=== PATIENT | male | born 2000 | race Caucasian/White ===

== ENCOUNTER 2018-02-05 09:39 | Emergency (ER) | payer SELFPAY ==
[2018-02-05 09:54] VITALS: BP 146/96; PULSE 79; RESP 20; TEMP 36.8; O2SAT 98; BMI 34.2
--- NOTE | 2018-02-05 10:12 | HMH.EDUTC ---
[facility] [place] Clinical Impression: Viral upper respiratory illness Disposition: Home, Self-Care Condition on Discharge: Good Instructions: DI for Viral Upper Respiratory Infection -- Adult Additional Instructions: * No sign of bacterial infection. Likely viral. Virus can take 7-14 days to run their course * Nasal Saline to remove nasal drainage and help with nasal congestion. Hard to eat, drink, sleep with nasal congestion so important to keep nose cleaned out * Monitor Temp. If fever develops, follow up. * Encourage fluids, water, gatorade, powerade, pedialyte if infant/toddler/child * warm salt water gargles * warm fluids * sore throat lozenges * sleep elevated * humidifier/vaporizer * Ok to continue dayquil during the day and nyquil at night. Do not take multiple different ones as they have similar ingredients and you can overdose on cold medication. * * Your throat swab was sent for culture. Those results are typically sent to your primary care. Be sure to follow up in 2-3 days if no improvement so they can review those results and treat if necessary. If you don't have primary care, I recommend you get one but in the mean time, you will have to return to a walk in clinic. Referrals: Sandeep Chang MD [Primary Care Provider] - (Follow up IMMEDIATELY for new or worsening symptoms, improvement followed by suddenly feeling worse OR no noticeable improvement over the next 48-72 hours. 911 for difficulty breathing ) Forms: Work/School Release Time of Disposition: 10:18 Medical Decision Making Vital Signs: 02/05/18 09:54 Temperature 98.2 F Temperature Source Oral Pulse Rate [Right Brachial] 79 Respiratory Rate 20 Blood Pressure [Right Arm] 146/96 Blood Pressure Mean [Right Arm] 112 Blood Pressure Source [Right Arm] Automatic Cuff Blood Pressure Position [Right Arm] Sitting 02 Sat by Pulse Oximetry 98 Oxygen Delivery Method Room Air - Lab Data Lab results reviewed: Yes: I reviewed the patient's lab results. Flu A neg Flu B neg Strep neg - Gary Inquiry Pt receiving controlled substance: No [facility] [place] HPI - General Stated complaint: cold Time Seen by Provider: 02/05/18 10:12 Mode of Arrival: Family Vehicle Source of Information: Patient Limitations: No Limitations Description of Symptoms (Recalled from Triage Doc. by RN): cough,sore throat and chills since saturday HEENT Symptoms (Recalled from RN notes): Yes (sore throat) Resp Symptoms (Recalled from RN notes): Yes (cough) Skin Symptoms (Recalled from RN notes): No MS Symptoms (Recalled from RN notes): No Functional Status (Recalled from RN notes): n/a - History of Present Illness Provider Complaint: c/o I don't feel well . Started with rhinorrhea and nasal congestion Saturday, 4 days ago. Has progressed to include sore throat and cough. No known fevers, aches. Intermittent chills. Dayquil and Nyquil help briefly . No known sick contacts. - Related Data Home Medications Medication Instructions Recorded Confirmed No Known Home Medications [No 02/03/18 02/03/18 Known Home Medications] Allergies Allergy/AdvReac Type Severity Reaction Status Date / Time morphine [MORPHINE] Allergy Unknown Verified 02/05/18 09:58 - Worker's Comp Is this a Worker's Comp case?: No [facility] History I have reviewed the patient's past medical history: Yes (denies PMHx) Medical History: Denies:: Cancer, Diabetes Mellitus Type 1, Diabetes Mellitus Type 2, MRSA Laterality Cases: Bilateral: Arthroscopy Knee Other Surgeries: Yes: Other Amputation: No Fractures: No - Social History Smoking Status: Never smoker Alcohol Intake: never - Psychiatric History Expresses thoughts of harming self/others: None Suicide Plan Description: No Plan Family Hx:: Heart Attack, Diabetes, Hypertension ROS Obtained: Yes Systems reviewed as appropriate & no additional complaints - Constitutional Constitutional: Reports as per HPI, Reports fatigue, Denies poor appetit
--- NOTE | 2018-02-05 10:17 | ED_ITS ---
[facility] [place] Clinical Impression: Viral upper respiratory illness Disposition: Home, Self-Care Condition on Discharge: Good Instructions: DI for Viral Upper Respiratory Infection -- Adult Additional Instructions: * No sign of bacterial infection. Likely viral. Virus can take 7-14 days to run their course * Nasal Saline to remove nasal drainage and help with nasal congestion. Hard to eat, drink, sleep with nasal congestion so important to keep nose cleaned out * Monitor Temp. If fever develops, follow up. * Encourage fluids, water, gatorade, powerade, pedialyte if infant/toddler/ child * warm salt water gargles * warm fluids * sore throat lozenges * sleep elevated * humidifier/vaporizer * Ok to continue dayquil during the day and nyquil at night. Do not take multiple different ones as they have similar ingredients and you can overdose on cold medication. * * Your throat swab was sent for culture. Those results are typically sent to your primary care. Be sure to follow up in 2-3 days if no improvement so they can review those results and treat if necessary. If you don't have primary care , I recommend you get one but in the mean time, you will have to return to a walk in clinic. Referrals: Sandeep Chang MD [Primary Care Provider] - (Follow up IMMEDIATELY for new or worsening symptoms, improvement followed by suddenly feeling worse OR no noticeable improvement over the next 48-72 hours. 911 for difficulty breathing ) Forms: Work/School Release Time of Disposition: 10:18 Medical Decision Making Vital Signs: 02/05/18 09:54 Temperature 98.2 F Temperature Source Oral Pulse Rate [Right Brachial] 79 Respiratory Rate 20 Blood Pressure [Right Arm] 146/96 Blood Pressure Mean [Right Arm] 112 Blood Pressure Source [Right Arm] Automatic Cuff Blood Pressure Position [Right Arm] Sitting 02 Sat by Pulse Oximetry 98 Oxygen Delivery Method Room Air - Lab Data Lab results reviewed: Yes: I reviewed the patient's lab results. Flu A neg Flu B neg Strep neg - Gary Inquiry Pt receiving controlled substance: No [facility] [place] - General Stated complaint: cold Time Seen by Provider: 02/05/18 10:12 Mode of Arrival: Family Vehicle Source of Information: Patient Limitations: No Limitations Description of Symptoms (Recalled from Triage Doc. by RN): cough,sore throat and chills since saturday HEENT Symptoms (Recalled from RN notes): Yes (sore throat) Resp Symptoms (Recalled from RN notes): Yes (cough) Skin Symptoms (Recalled from RN notes): No MS Symptoms (Recalled from RN notes): No Functional Status (Recalled from RN notes): n/a - History of Present Illness Provider Complaint: c/o I don't feel well . Started with rhinorrhea and nasal congestion Saturday, 4 days ago. Has progressed to include sore throat and cough. No known fevers, aches. Intermittent chills. Dayquil and Nyquil help briefly . No known sick contacts. - Related Data Home Medications Medication Instructions Recorded Confirmed No Known Home Medications [No 02/03/18 02/03/18 Known Home Medications] Allergies Allergy/AdvReac Type Severity Reaction Status Date / Time morphine [MORPHINE] Allergy Unknown Verified 02/05/18 09:58 - Worker's Comp Is this a Worker's Comp case?: No H History I have reviewed the patient's past medical history: Yes (denies PMHx) Medical History: Denies:: C
[2018-02-05 10:19] LABS: UTC Influenza A Antigen Negative (Negative); UTC Influenza B Antigen Negative (Negative); UTC Strep Screen (Rapid) Negative (Negative)
[2018-02-05 10:26] VITALS: BP 138/88; PULSE 76; RESP 20; TEMP 36.8; O2SAT 97
== END 2018-02-05 10:28 | disposition home or self-care (01) ==
PROVIDERS: Emergency Provider Nurse Practitioner Family; Family Provider Emergency Medicine; PCP Emergency Medicine
DX: R06.9 Unspecified abnormalities of breathing (principal); Z88.6 Allergy status to analgesic agent
CPT/HCPCS: 87804; 87880; 99203

== ENCOUNTER 2021-05-11 19:47 | Emergency (ER) | payer BC, SELFPAY ==
[2021-05-11 19:50] VITALS: BP 126/88; PULSE 73; RESP 20; TEMP 36.9; O2SAT 99; BMI 35.5
--- NOTE | 2021-05-11 20:23 | HMH.EDUTC ---
[facility] [place] Disposition Clinical Impression: Puncture wound of right thumb Qualifiers: Encounter type: initial encounter Qualified Code(s): S61.031A - Puncture wound without foreign body of right thumb without damage to nail, initial encounter Fish hook injury of finger of right hand Qualifiers: Encounter type: initial encounter Qualified Code(s): S69.91XA - Unspecified injury of right wrist, hand and finger(s), initial encounter Disposition: Home, Self-Care Condition on Discharge: Good Instructions: DI for Removal of Foreign Body From Skin, Cephalexin Additional Instructions: Keep the wound clean and dry. Keep a dressing on it if you are going to be getting it dirty. Watch the for signs of infection, such as redness, swelling, drainage, fever. etc. Take tylenol or ibuprofen for pain. Follow up with your regular doctor for a wound recheck in 2 to 3 days, unless you need to f/u sooner. GO TO THE ER FOR ANY WORSENING SYMPTOMS OR CONCERNS. Prescriptions: Mupirocin [Bactroban 2% Ointment 22gm tube] 1 applicatio TP TID 7 Days #1 tube Transmission Status: Received by [facility] cephALEXin [cephALEXin 500mg capsule] 500 mg PO Q6H 10 Days #40 cap Transmission Status: Received by [facility] Referrals: Joesph Leigh MD [Primary Care Provider] - Time of Disposition: 20:27 Medical Decision Making - Medical Records Medical records reviewed: No: I reviewed the patient's medical records. - Gary Inquiry Pt receiving controlled substance: No Vital Signs: 05/11/21 19:50 05/11/21 20:28 Temperature 98.5 F 98.5 F Temperature Source Oral Pulse Rate 73 Pulse Rate [Right Brachial] 73 Respiratory Rate 20 20 Blood Pressure 126/88 Blood Pressure [Right Arm] 126/88 Blood Pressure Mean [Right Arm] 100 Blood Pressure Source [Right Arm] Automatic Cuff Blood Pressure Position [Right Arm] Sitting 02 Sat by Pulse Oximetry 99 Oxygen Delivery Method Room Air [facility] [place] HPI - General Stated complaint: ao 05/11 1930 fish hook in left hand Time Seen by Provider: 05/11/21 20:23 Mode of Arrival: Ambulatory Source of Information: Patient Limitations: No Limitations Description of Symptoms (Recalled from Triage Doc. 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 He was unable to get it out himself. His tetanus immunization is up to date. - Related Data Previous Rx's Medication Instructions Recorded Mupirocin [Bactroban 2% Ointment 1 applicatio TP TID 7 Days #1 tube 05/11/21 22gm tube] cephALEXin [cephALEXin 500mg 500 mg PO Q6H 10 Days #40 cap 05/11/21 capsule] Allergies Allergy/AdvReac Type Severity Reaction Status Date / Time morphine [MORPHINE] Allergy Unknown Verified 02/05/18 09:58 - Worker's Comp Is this a Worker's Comp case?: No [facility] History - Hepatitis A Screen Drug use history?: No High risk sexual behaviors?: No History of sexually transmitted infection?: No Currently employed?: No Childcare worker?: No Do you have indoor plumbing?: Yes Do you have electricity?: Yes Attestation statement:: This patient has been screened for Hepatitis A risk factors. I have reviewed the patient's past medical history: Yes Medical History: Denies:: Cancer, Diabetes Mellitus Type 1, Diabetes Mellitus Type 2, MRSA Laterality Cases: Bilateral: Arthroscopy Knee Other Surgeries: Yes: Other Amputation: No Fractures: No - Social History Smoking Status: Never smoker Alcohol Intake: never Occupational Status: other Family Hx:: Heart Attack, Diabetes, Hypertension ROS Obtained: Yes All system
[2021-05-11 20:28] VITALS: BP 126/88; PULSE 73; RESP 20; TEMP 36.9; O2SAT 99
== END 2021-05-11 20:31 | disposition home or self-care (01) ==
PROVIDERS: Emergency Provider Nurse Practitioner Family; PCP Family Medicine
DX: S61.021A Laceration with foreign body of right thumb without damage to nail, initial encounter (principal); W45.8XXA Other foreign body or object entering through skin, initial encounter; W22.8XXA Striking against or struck by other objects, initial encounter; Y92.89 Other specified places as the place of occurrence of the external cause
CPT/HCPCS: 10120; 99202; G0463

== ENCOUNTER 2021-08-26 11:28 | Emergency (ER) | payer BC, SELFPAY ==
[2021-08-26 12:30] VITALS: BP 130/91; PULSE 113; RESP 20; TEMP 36.8; O2SAT 96; BMI 33.6
--- NOTE | 2021-08-26 13:09 | HMH.EDUTC ---
[facility] – [place] Disposition Clinical Impression: Exposure to COVID-19 virus Disposition: Home, Self-Care Condition on Discharge: Good Instructions: Preventing the Spread of Coronavirus Discharge Instructions Additional Instructions: You have been tested for COVID19. Please isolate as if you are positive until test results received. Vitamins B, C, D and zinc may help. Baby aspirin, Mucinex, Pepcid, [place]-3s may also help. Get fresh air, sunshine, walk around, take deep breaths, sleep on belly. Return to [facility] if difficulty breathing, chest pain, etc. Referrals: Joesph Leigh MD [Primary Care Provider] - Time of Disposition: 13:16 Medical Decision Making - Gary Inquiry Pt receiving controlled substance: No Vital Signs: 08/26/21 12:30 Temperature 98.3 F Temperature Source Oral Pulse Rate [Right Brachial] 113 H Respiratory Rate 20 Blood Pressure [Right Arm] 130/91 H Blood Pressure Mean [Right Arm] 104 Blood Pressure Source [Right Arm] Automatic Cuff Blood Pressure Position [Right Arm] Sitting 02 Sat by Pulse Oximetry 96 Oxygen Delivery Method Room Air [facility] [place] HPI - General Stated complaint: covid test/ symtpoms and exposure Time Seen by Provider: 08/26/21 13:10 Mode of Arrival: Ambulatory Source of Information: Patient Limitations: No Limitations Description of Symptoms (Recalled from Triage Doc. by RN): COVID TEST D/T EXPOSURE ON SATURDAY. C/O BACK PAIN, SORE THROAT, AND HEADACHE. HEENT Symptoms (Recalled from RN notes): Yes Resp Symptoms (Recalled from RN notes): No Skin Symptoms (Recalled from RN notes): No MS Symptoms (Recalled from RN notes): No Functional Status (Recalled from RN notes): WNL - History of Present Illness Provider Complaint: Exposed to coworker with COVID19 5 days ago. Last night started having back pain, headache, sore throat. No fever. No vomiting or diarrhea. Onset (ago): day(s) (5) Relieving factors: none Exacerbating factors: none Associated symptoms: headaches Treatments prior to arrival: none - Related Data Previous Rx's Medication Instructions Recorded Mupirocin [Bactroban 2% Ointment 1 applicatio TP TID 7 Days #1 tube 05/11/21 22gm tube] cephALEXin [cephALEXin 500mg 500 mg PO Q6H 10 Days #40 cap 05/11/21 capsule] Allergies Allergy/AdvReac Type Severity Reaction Status Date / Time morphine [MORPHINE] Allergy Unknown Verified 02/05/18 09:58 - Worker's Comp Is this a Worker's Comp case?: No [facility] History - Hepatitis A Screen Drug use history?: No High risk sexual behaviors?: No History of sexually transmitted infection?: No Currently employed?: No Childcare worker?: No Do you have indoor plumbing?: Yes Do you have electricity?: Yes Attestation statement:: This patient has been screened for Hepatitis A risk factors. I have reviewed the patient's past medical history: Yes Medical History: Denies:: Cancer, Diabetes Mellitus Type 1, Diabetes Mellitus Type 2, MRSA Laterality Cases: Bilateral: Arthroscopy Knee Other Surgeries: Yes: Other Amputation: No Fractures: No - Social History Smoking Status: Never smoker Alcohol Intake: never Occupational Status: other Family Hx:: Heart Attack, Diabetes, Hypertension ROS Obtained: Yes All systems reviewed & no additional complaints - Constitutional Constitutional: Reports headache(s) - ENT Ears, Nose, Mouth, and Throat: Reports sore throat - Musculoskeletal Musculoskeletal: Reports back pain Physical Exam - General General appearance: alert, in no apparent distress - Head Head exam: normocephalic - Eye Eye exam: Present: PERRL - ENT ENT exam: Present: normal oropharynx, TM's normal bilaterally - Neck Neck exam: Present: normal inspection. Absent: lymphadenopathy - Chest Chest inspection: Present: normal inspection, symmetric chest wall rise - Respiratory Respiratory exam: Present: normal lung sounds bilaterally - Cardiovascular Cardiovascular exam: Present: regular rate
[2021-08-26 13:18] VITALS: BP 130/91; PULSE 113; RESP 20; TEMP 36.8; O2SAT 96
--- NOTE | 2021-08-26 17:35 | PC.NURSE ---
PATIENT NOTIFIED OF POSITIVE COVID TEST AT THIS TIME
== END 2021-08-26 13:22 | disposition home or self-care (01) ==
PROVIDERS: Emergency Provider Physician Assistant; PCP Family Medicine
DX: U07.1 COVID-19 (principal); J02.9 Acute pharyngitis, unspecified
CPT/HCPCS: 99202; C9803; G0463; U0003; U0005

== ENCOUNTER 2021-08-30 13:44 | Emergency (ER) | payer BC, SELFPAY ==
[2021-08-30 13:45] VITALS: BP 148/71; PULSE 116; RESP 24; TEMP 37.6; O2SAT 94; BMI 33.6
--- NOTE | 2021-08-30 14:12 | XR_ITS ---
PROCEDURE: XR CHEST 2V CLINICAL HISTORY: SOA/Covid positive COMPARISON: CR CXR CHEST(2 VIEWS-NOT PORTABLE) from 01/17/2008 CR CXR CHEST(2 VIEWS-NOT PORTABLE) from 10/13/[address] [facility] [address] CHEST WITHOUT CONTRAST from 10/13/2012 CR CXR CHEST(2 VIEWS-NOT PORTABLE) from 10/23/[address] ANGIO CHEST PE PROTOCOL from 08/30/2021 FINDINGS: The cardiomediastinal silhouette and pulmonary vascularity are within normal limits. Slight increased density is present in the right lung base laterally could represent developing infiltrate. The remaining lungs are clear. Minimal upper thoracic curvature convex left and lower thoracic curvature convex right. IMPRESSION: Right lower lobe pneumonia Dictated by: Kin Marina MD 08/30/2021 16:35 Kin Marina MD in [place] 08/30/2021 16:35
--- NOTE | 2021-08-30 14:13 | PC.NURSE ---
Pt sats 94% on room air and pt appeared to be SOA. Placed pt on NC @ 2lpm
--- NOTE | 2021-08-30 14:21 | ECG_ITS ---
APPROVED REPORT Exam: Resting ECG HR:96 bpm ECG Measurements Heart Rate 96 AXES WV 158 P 32 QRSd 86 QRS 33 QT 336 T 10 QTc 424 Conclusion Normal sinus rhythm Normal ECG Electronically signed by : Joesph Reese MD 08/30/2021 21:07:57
[2021-08-30 14:23] LABS: Basophils % 1.1 % (0.1-2.0); Chloride 100 mmol/L (98-107); Eosinophils % 0.5 % (0.1-12.0); Hematocrit 48.4 % (42.0-52.0); Hemoglobin 16.5 g/dL (14.1-18.0); Lymphocytes # 0.7 K/mm3 (0.7-4.5); Lymphocytes % 22.7 % (10-50); Mean Corpuscular HGB Conc 34.2 g/dL (31.8-35.4); Mean Corpuscular Hemoglobin 30.5 pg (27.0-31.2); Mean Corpuscular Volume 89.1 fl (80-94); Mean Platelet Volume 8.2 fl (7.4-10.4); Monocytes # 0.3 K/mm3 (0.1-1.0); Monocytes % 8.2 % (1.7-9.3); Neutrophils # 2.1 K/mm3 (1.8-7.8); Neutrophils % 67.5 % (37.0-80.0); Platelet Count 194 K/mm3 (142-424); Potassium 3.9 mmoL/L (3.5-5.1); Red Blood Count 5.42 M/mm3 (4.60-6.20); Red Cell Distribution Width 12.8 % (11.5-17.5); Sodium 140 mmol/L (136-145); White Blood Count 3.1 K/mm3 (4.8-10.8)
[2021-08-30 14:26] LABS: Alanine Aminotransferase 63 U/L (12-78); Albumin Level 4.7 g/dl (3.5-5.0); Albumin/Globulin Ratio 1.4 (1.1-1.8); Alkaline Phosphatase 80 U/L (38-126); Anion Gap 13.9 mEq/L (5-15); Aspartate Amino Transferase 43 U/L (17-59); Bilirubin,Total 0.3 mg/dl (0.2-1.3); Blood Urea Nitrogen 8 mg/dl (9-20); Calcium 9.1 mg/dl (8.4-10.2); Carbon Dioxide 30 mmol/L (22.0-30.0); Creatinine Clearance Estimated 178 mL/min (50-200); Estimated Glomerular Filt Rate 106 ml/min (>60); GFR (African American) 128 ML/MIN (>60); Globulin 3.3 g/dL (1.3-3.2); Glucose 92 mg/dl (74-100)
--- NOTE | 2021-08-30 14:26 | PC.NURSE ---
Pt to rad
[2021-08-30 14:31] LABS: D-Dimer 0.53 ug/mL (0.0-0.5)
--- NOTE | 2021-08-30 14:43 | CT_ITS ---
PROCEDURE: CT ANGIO CHEST PE PROTOCOL CLINCIAL INDICATION: pulmonary embolism Shortness of air, Covid19 COMPARISON: [facility] CT CHEST WITHOUT CONTRAST from 10/13/2012 TECHNIQUE: IV Contrast: 70ML Isovue 370 Axial images obtained with sagittal and coronal reformats. All CT scans at the facility use one or more dose reduction, viz: automated exposure control, ma/kV adjustment per patient size (including targeted exams where dose is matched to indication, i.e. head), or iterative reconstruction technique. FINDINGS: HEART AND MEDIASTINAL STRUCTURES: Soft tissue density present in the anterior mediastinum and may represent residual thymic tissue. No evidence of pulmonary embolus, aortic aneurysm, or aortic dissection. LUNGS AND PLEURAL SPACES: Dense consolidation is present in the right lower lobe within the lateral basilar segment consistent with pneumonia. No effusions evident. BONY STRUCTURES: No acute bony abnormalities apparent. UPPER ABDOMEN: Unremarkable. ADDITIONAL FINDINGS: No other significant abnormalities. IMPRESSION: Right lower lobe pneumonia. The patient reportedly has tested positive for Covid19. The imaging findings are not typical for Covid19 pneumonia but more in keeping with a bacterial pneumonia however, Covid19 pneumonia is not excluded. No evidence of pulmonary embolus. Dictated by: Kin Marina MD 08/30/2021 15:30 Kin Marina MD in [place] 08/30/2021 15:30
--- NOTE | 2021-08-30 14:47 | HMH.EDGENADL ---
ED Disposition Clinical Impression: Pneumonia, COVID-19 Disposition: Home, Self-Care Condition on Discharge: Good Instructions: Pneumonia-Adult Additional Instructions: Return the emergency department should you have worsening difficulty breathing cough or any other concerns within the next 8 hours otherwise take medicines as prescribed and discharged home. Follow-up with your primary care physician. Prescriptions: dexAMETHasone [Dexamethasone] 6 mg PO DAILY 10 Days #10 tab Transmission Status: Pending to [facility] Cefdinir [Omnicef 300mg Capsule] 300 mg PO BID #20 cap Transmission Status: Pending to [facility] Referrals: Joesph Leigh MD [Primary Care Provider] - - Critical Care Critical Care Time: No Attestation: On 08/30/21, the high probability of a clinically significant, sudden or life threatening deterioration of the following system(s) required my full and direct attention, intervention and personal management. The time I documented below is in addition to time spent performing reported procedures but includes the following listed in this critical care notation. Medical Decision Making - Medical Records Medical records reviewed: Yes: I reviewed the patient's medical records. - Gary Inquiry Pt receiving controlled substance: No Vital Signs: 08/30/21 13:45 08/30/21 15:12 Temperature 99.7 F H Temperature Source Oral Pulse Rate 93 H Pulse Rate [Right] 116 H Respiratory Rate 24 20 Blood Pressure 123/81 Blood Pressure [Right Arm] 148/71 H Blood Pressure Mean [Right Arm] 96 Blood Pressure Source Automatic Cuff Blood Pressure Source [Right Arm] Automatic Cuff Blood Pressure Position Sitting Blood Pressure Position [Right Arm] Sitting 02 Sat by Pulse Oximetry 94 L 98 Oxygen Delivery Method Room Air Nasal Cannula Oxygen Flow Rate (LPM) 2 - Lab Data Lab Results 08/30/21 14:00: WBC 3.1 L, RBC 5.42, Hgb 16.5, Hct 48.4, MCV 89.1, MCH 30.5, MCHC 34.2, RDW 12.8, Plt Count 194, MPV 8.2, Neut % (Auto) 67.5, Lymph % (Auto) 22.7, [place] % (Auto) 8.2, Eos % (Auto) 0.5, Baso % (Auto) 1.1, Neut # (Auto) 2.1, Lymph # (Auto) 0.7, [place] # (Auto) 0.3, Eos # (Auto) 0.0, Baso # (Auto) 0.0 08/30/21 14:00: D-Dimer 0.53 H 08/30/21 14:00: Sodium 140, Potassium 3.9, Chloride 100, Carbon Dioxide 30, Anion Gap 13.9, BUN 8 L, Creatinine 0.90, Estimated Creat Clear 178, Estimated GFR 106, Est GFR ( Amer) 128, Glucose 92, Calcium 9.1, Total Bilirubin 0.3, AST 43, ALT 63, Alkaline Phosphatase 80, Troponin I < 0.01, Total Protein 8.0, Albumin 4.7, Globulin 3.3 H, Albumin/Globulin Ratio 1.4 Result diagrams: 08/30/21 14:00 08/30/21 14:00 Orders (Tests/Meds): ED MEDICATIONS Discontinued Medications Generic Name Dose Route Start Last Admin Trade Name Freq PRN Reason Stop Dose Admin Sodium Chloride 1,000 mls @ 999 mls/hr 08/30/21 14:15 08/30/21 14:15 Sod Chlor 0.9% 1000ml Bag IV 08/30/21 15:15 999 mls/hr .Q1H1M ROXANN Administration Iopamidol 70 ml 08/30/21 15:06 08/30/21 15:08 Iopamidol-370 (76%);100ml Bottle IV 08/30/21 15:07 70 ml ONCE ONE Administration Ondansetron HCl 4 mg 08/30/21 14:12 08/30/21 14:15 Ondansetron 4mg/2ml Vial IV 08/30/21 14:13 4 mg ONCE ONE Administration Sodium Chloride 10 ml 08/30/21 15:06 08/30/21 15:08 Sodium Chloride 0.9% 10ml Syr (Rad Only) IV 08/30/21 15:07 10 ml ONCE ONE Administration Sodium Chloride 50 ml 08/30/21 15:06 08/30/21 15:08 0.9 % Sodium Chloride 50 Ml Vial IV 08/30/21 15:07 50 ml ONCE ONE Administration ORDERS Category Date Time Status Troponin I Q3H Lab 08/30/21 17:15 Ordered Troponin I Q3H Lab 08/30/21 20:15 Ordered Medical Decision Narrative: 20-year-old male with Covid presents with worsening shortness of air and chest pain. He is ambulatory to the room in no acute distress. He does have mild tachycardia, CT pulmonary embolism scan obtained after D-dimer test was
[2021-08-30 14:49] LABS: Troponin I < 0.01 ng/ml (0.00-0.034)
--- NOTE | 2021-08-30 15:05 | PC.NURSE ---
pt return from rad
[2021-08-30 15:12] VITALS: BP 123/81; PULSE 93; RESP 20; O2SAT 98
[2021-08-30 15:13] VITALS: BP 123/81; PULSE 99; O2SAT 100
[2021-08-30 15:30] VITALS: BP 128/84; PULSE 93; O2SAT 100
[2021-08-30 16:30] VITALS: BP 118/73; PULSE 95; O2SAT 100
[2021-08-30 17:02] VITALS: BP 118/73; PULSE 95; RESP 20; TEMP 37.6; O2SAT 100
== END 2021-08-30 17:02 | disposition home or self-care (01) ==
PROVIDERS: Emergency Provider Emergency Medicine; PCP Family Medicine
DX: J18.9 Pneumonia, unspecified organism (principal); U07.1 COVID-19
CPT/HCPCS: 71046; 71275; 80053; 84484; 85025; 85378; 93005; 96365; 96375; 99283; J2405; Q9967

== ENCOUNTER 2024-05-25 14:04 | Outpatient (CLI) | payer BC, SELFPAY ==
--- NOTE | 2024-05-25 14:12 | XR_ITS ---
FINAL REPORT CLINICAL HISTORY: LT KNEE PAIN FINDINGS: LEFT KNEE 3 views of the left knee were obtained. There is no acute fracture or dislocation. Visualized joint spaces are normally aligned. Soft tissues are unremarkable. IMPRESSION: No acute bony abnormality. Reviewed, Interpreted and Dictated by Ivana De La Cruz MD Transcribed by Ofelia Montero Authenticated and . [facility]
== END 2024-05-25 23:59 | disposition home or self-care (01) ==
LOC: RAD 14:05
PROVIDERS: PCP Nurse Practitioner; Visit Provider Nurse Practitioner
DX: M25.562 Pain in left knee (principal)
CPT/HCPCS: 73562

== ENCOUNTER 2025-01-23 18:16 | Emergency (ER) | payer BC, SELFPAY ==
[2025-01-23 18:18] VITALS: BP 158/111; PULSE 103; RESP 18; TEMP 36.9; O2SAT 98; BMI 34.4
--- NOTE | 2025-01-23 18:40 | ED_ITS ---
Discharge Plan Disposition Patient Disposition: Home, Self-Care Prescriptions Prescriptions: New ondansetron 4 mg tablet,disintegrating 4 mg PO Q6H PRN (Reason: nausea and vomiting) 5 Days Qty: 20 0RF loperamide 2 mg capsule 2 mg PO Q6H PRN (Reason: loose stool) 5 Days Qty: 20 0RF Rx Instructions: Please take 4 mg initially, followed by 2 mg after each loose stool, maximum 16 mg/day No Action cefdinir 300 MG capsule 300 mg PO BID Qty: 20 0RF dexamethasone 6 MG tablet 6 mg PO DAILY 10 Days Qty: 10 0RF Referrals Follow up/Referrals: Ari Solis MD [Primary Care Provider] - See instructions Activity Restrictions/Add. Instructions Additional Instructions/Restrictions: Your symptoms today are consistent with an acute viral syndrome. As discussed determine the exact etiology of this virus is not indicated as it would not change management lead. Treatment is supportive treating your symptoms. Please take Tylenol and ibuprofen as needed for any pain or fever. You been given nausea medicine and diarrhea medicine to take as needed. Please push oral fluids including Gatorade and Powerade. Return with any significant worsening of her symptoms. Clinical Impressions Clinical Impression: Nausea vomiting and diarrhea, Headache, Acute viral syndrome Instructions Patient Instructions: DI for Diarrhea and Traveler's Diarrhea -- Adult, DI for Diarrhea and Traveler's Diarrhea -- Child, DI for Nausea -- Adult, DI for Nausea -- Child Print Language Print Language: Vietnamese Discharge ED Provider: Trish Cobos General Adult HPI General Chief complaint: Nausea/Vomiting/Diarrhea Stated complaint: nausea,vomiting,body aches and pain Time Seen by Provider: 01/23/25 18:26 Mode of Arrival: Family Vehicle Source of Information: Patient Limitations: No Limitations Description of Symptoms (Recalled from ER Triage Doc. by RN): Pt c/o feeling unwell for 3 days. States his sxs began with nausea and watery diarrhea for he past 3 days. Today, he has vomiting 3x with poor oral intake. He also reports chills, body aches, and sinus congestion. He was exsposed to the flu 1 wk ago. No OTC medications today, although he did take Advil several days ago d/t a bad headache . Denies any significant PMH. History of Present Illness HPI narrative: Patient is a previously healthy 24-year-old male presenting today with 3 days of nausea diarrhea and headache and has had vomiting today. Last episode of vomiting was around 5 PM. States he just overall feels unwell. Has had some chills and bodyaches. Has been exposed to the flu. Symptoms overall have been lasting about 72 hours. Related Data Previous Rx's ?Medication ?Instructions ?Recorded cefdinir 300 mg capsule 300 mg PO BID #20 caps 08/30/21 dexamethasone 6 mg tablet 6 mg PO DAILY 10 days #10 tabs 08/30/21 loperamide 2 mg capsule 2 mg PO Q6H PRN loose stool 5 days 01/23/25 #20 caps ondansetron 4 mg disintegrating 4 mg PO Q6H PRN nausea and 01/23/25 tablet vomiting 5 days #20 tabs Allergies Allergy/AdvReac Type Severity Reaction Status Date / Time morphine (MORPHINE) Allergy Unknown Verified 08/30/21 14:14 [facility] Disclaimer: The information contained in this section may have been updated after the patient was seen, as this information can be updated by other users. Social History Smoking Status: Former smoker alcohol intake: never current occupational status: other Travel in the last 8 weeks: None Have you lived/traveled outside US in past 30 days?: No Contact w/someone who lives/traveled outside US past 30 days?: No Exposure to someone with infectious disease in past 14 days?: No Do you have a fever (greater than 100.4 F or 38 C)?: No Have you tested positive for COVID-19: No Exposed to someone with COVID-19 in past 14 days?: No Do you have a sore throat?: No Do you have a cough?: No Do you have any weakness?: No Do you have any diarrhea?: No Are you experiencing any unusual bleeding?: No Do you have any muscle aches/pain?: Yes Do you have any abdominal pain?: Yes Are you experiencing loss of taste or smell?: No Other Medical History Have you received the Flu Vaccine for this season: No Have you received the Pneumonia Vaccine: No ROS Obtained: Yes All systems reviewed & no additional complaints except as documented Physical Exam General General appearance: alert and in no apparent distress Respiratory Respiratory exam: Present normal lung sounds bilaterally; Absent respiratory distress Cardiovascular Cardiovascular exam: Present regular rate and normal rhythm Neurological Exam Neurological exam: Present alert and oriented X3 Medical Decision Making Medical Records Screening: Per USPSTF and CDC recommendations, given the prevalence of disease in our region, it is our hospital?s policy to screen for HIV and viral Hepatitis for all patients aged 18 and over and those with ongoing risk factors. Gary Inquiry Pt receiving controlled substance: No Vital Signs: 01/23/25 18:18 Temperature 98.4 F Temperature Source Oral Pulse Rate [Right] 103 H Respiratory Rate 18 Blood Pressure [Right Arm] 158/111 H Blood Pressure Mean [Right Arm] 126 Blood Pressure Source [Right Arm] Automatic Cuff 02 Sat by Pulse Oximetry 98 Oxygen Delivery Method Room Air Orders (Tests/Meds): ED MEDICATIONS Generic Name Dose Route Start Last Admin Trade Name Freq PRN Reason Stop Dose Admin Ondansetron HCl 4 mg 01/23/25 18:38 Ondansetron 4mg Odt SL 01/23/25 18:39 ONCE ONE ORDERS Category Date Time Status HIV Combo Stat Lab 01/23/25 18:37 Ordered Hepatitis C Ab Qual. W/ RFX Stat Lab 01/23/25 18:37 Ordered Medical Decision Narrative: Well-appearing nontoxic 24-year-old who is previously healthy without any significant comorbidities very low risk for complications of viral illnesses. His symptoms today are consistent with a viral syndrome with headache nausea vomiting diarrhea. Abdominal exam is completely benign. Not worried about surgical pathology. He is not severely or moderately dehydrated. I gave him the option of IV fluids and IV antiemetics but he would like to go home. I do not think labs or, change any management at this point. Patient was given a dose of oral ODT Zofran. Prescription of Zofran and loperamide was given to him to take outpatient. He has been advised to take aggressive p.o. fluids and to return with a significant worsening of his symptoms discharged in stable condition. Critical Care Critical Care Time Critical Care Time: No
[2025-01-23 18:45] VITALS: BP 158/111; PULSE 96; RESP 16; TEMP 36.6; O2SAT 97
[2025-01-23] MEDS: ONDANSETRON 4MG ODT 4 MG SL (18:45)
== END 2025-01-23 18:46 | disposition home or self-care (01) ==
PROVIDERS: Emergency Provider Student in an Organized Health Care Education/Training Program; PCP Family Medicine
DX: B34.9 Viral infection, unspecified (principal); R11.2 Nausea with vomiting, unspecified; R19.7 Diarrhea, unspecified; R63.8 Other symptoms and signs concerning food and fluid intake; R51.9 Headache, unspecified; Z20.828 Contact with and (suspected) exposure to other viral communicable diseases
CPT/HCPCS: 99283; Q0162

== ENCOUNTER 2025-11-30 23:31 | Emergency (ER) | payer BC, SELFPAY ==
[2025-11-30 23:35] VITALS: BP 145/99; PULSE 107; O2SAT 97
[2025-11-30 23:37] VITALS: BP 145/99; PULSE 110; RESP 16; TEMP 36.6; O2SAT 98; BMI 34.4
--- OUTSIDE RECORDS SUMMARY | 2025-11-30 23:37 | XMS_ITS | Clinical Summary ---
[facility] Address [address] [place] [address] Care Team Providers Care Video Tape Duplicator Name Role Phone Provider, No Known Primary Care Provider [phone] Allergies Active Allergy Reactions Criticality Noted Date Comments Morphine Hives 12/24/2022 Medications azithromycin (ZITHROMAX) 250 MG tabletIndication s:Pharyngitis due to other organism 2 on day #1 then 1 QD on days 2-5 6 tablet 12/24/2022 Active Social History Tobacco Use Types Packs/Day Years Used Date Smoking Tobacco: Never Smokeless Tobacco: Never Tobacco Cessation:Counseling Given: Not Answered Alcohol Use Standard Drinks/Week Comments Never 0 (1 standard drink = 0.6 oz pur e alcohol) Abuse Screen Answer Date Recorded Unsafe at Home or Work/School Not on file Feels Threatened by Someone? Not on file Does Anyone Keep You from Co ntacting Others or Doint Things Outside the Home? Not on file 09/13/2023 Physical Sign of Abuse Present Not on file 1 Housing Stability Answer Date Recorded Current Living Arrangements Not on file 09/01 Potentially Unsafe Housing Conditions Not on nancy e 09/13/2023 Family and Community Support Answer Florentin e Recorded Help with Day-to-Day Activities Not on file 09/13/2023 Lonely or Isolated Not on file 09/13/2023 Employment Answer Date Recorded Do you want help finding or keeping work or a thea b? Not on file 09/13/2023 Disabilities Answer Date Recorded Concentrating, Remembering, or Making Decisions Difficulty Not on file 09/13/2023 Doing Errands Independently Difficulty Not on fi le 09/13/2023 Education Answer Date Recorded Help with school or training? Not on file Preferred Language Not on file 09/13/2023 Sex and Gender Information Value Date Recorded Sex Assigned at Not on file Legal Sex Male 12:48 PM EST Gender Identity Not on file Sexual Orientation Not on file Last Filed Vital Signs Vital Sign Reading Time Taken Comments Blood Pressure 137/87 12/24/2022 1:05 PM EST Pulse 102 12/24/2022 1:05 PM EST Temperature 36.6 C (97.9 F) 12/24/2022 1:05 PM EST Respiratory Rate 16 12/24/2022 1:05 PM EST Oxygen Saturation 99% 12/24/2022 1:05 PM EST Inhaled Oxygen Concentration - - Weight 95.3 kg (210 lb) 12/24/2022 1:05 PM EST Height 172.7 cm (5' 8 ) 12/24/2022 1:05 PM EST Body Mass Index 31.93 12/24/2022 1:05 PM EST Plan of Treatment Health Maintenance Due Date Last Done Comments ANNUAL PHYSICAL 1998 HEPATITIS C SCREENING 1998 TDAP/TD VACCINES (1 - Tdap) 2017 INFLUENZA VACCINE 07/02/2025 Pneumococcal Vaccine 0-49 Aged Out No longer eligible based on patient's age to complete this topic Insurance [facility] PPO Care Teams Video Tape Duplicator Relationship Specialty Start Date End Date Provider, [place] [address] PCP - General 12/24/22
--- OUTSIDE RECORDS SUMMARY | 2025-11-30 23:37 | XMS_ITS ---
Author Organization Unknown ENCOUNTERS Encounter Performer Location Date Diagnosis Diagnosis Status Emergency [address] [place] [address] [id number] Pre Admit [address] [place] [address] [id number] Pre Admit J [address] [place] [address] [id number] Emergency J [address] [place] [address] [id number] [facility] Juan Antonio Daly [address] [place] [address] [id number] [facility] Tosha Shearer [address] [place] [address] [id number] [facility] Cristiano Ward [address] [place] [address] [id number] [facility] *Note: Encounters from your own facility or health system may be excluded. Allergies, Adverse Reactions, Alerts Allergen Type Severity Identification Date morphine drug allergy 0 [id number] Medications Name Date Quantity Days Supplied [facility] Number
--- OUTSIDE RECORDS SUMMARY | 2025-11-30 23:37 | XMS_ITS | Clinical Summary ---
Author Organization Healthcare Address [address] [place] [address] Care Team Providers Care Intake Counselor Name Role Phone Sandeep Chang MD Primary Care Provider [phone] Family History Medical History Relation Name Comments Cardiac disorder Other 1 Diabetes Other 2 Relation Name Status Comments Other 1 Other 2 Social History Tobacco Use Types Packs/Day Years Used Date Smoking Tobacco: Never Alcohol Use Standard Drinks/Week Comments No 0 (1 standard drink = 0.6 oz pur e alcohol) Sex and Gender Information Value Date Recorded Sex Assigned at Not on file Legal Sex Male 6:06 PM EDT Gender Identity Not on file Sexual Orientation Not on file Last Filed Vital Signs Vital Sign Reading Time Taken Comments Blood Pressure - - Pulse - - Temperature - - Respiratory Rate - - Oxygen Saturation - - Inhaled Oxygen Concentration - - Weight 97 kg (213 lb 13.5 oz) 10/04/2017 3:26 PM EDT Height 167.6 cm (5' 6 ) 05/10/2014 9:30 AM EDT Body Mass Index - - Plan of Treatment Not on file Care Teams Intake Counselor Relationship Specialty Start Date End Date Sandeep Chang MD [address] [place] [address] PCP - General 04/14/21
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
[2025-11-30 23:46] VITALS: BP 136/74; PULSE 98; RESP 16; TEMP 36.6; O2SAT 98
== END 2025-11-30 23:50 | disposition home or self-care (01) ==
PROVIDERS: Emergency Provider Emergency Medicine; PCP Family Medicine
DX: Z04.3 Encounter for examination and observation following other accident (principal); Z88.5 Allergy status to narcotic agent; V57.0XXA Driver of pick-up truck or van injured in collision with fixed or stationary object in nontraffic accident, initial encounter
CPT/HCPCS: 99284